=== PATIENT | male | born 1985 | race Hispanic/Latino ===

== ENCOUNTER 2019-06-06 21:12 | Emergency (ER) | payer BC, SELFPAY ==
[2019-06-06] MEDS ORDERED: LORazepam 2 MG/ML VIAL ONE (22:31)
[2019-06-06] MEDS ORDERED: HALOPERIDOL LACT 5 MG/ML INJ ONE (22:31)
[2019-06-06 23:23] LABS: Absolute Lymphocytes (CBC) 1.6 K/uL (0.7-4.9); Basophils % 0.2 % (0-1.3); Hematocrit 49.3 % (39.6-49.0); Lymphocytes % 11.2 % (15.3-44.8); MPV 10.3 fL (7.6-11.3); RBC Red Blood Cell Count 5.45 M/uL (4.33-5.43)
[2019-06-06 23:50] LABS: ALT/SGPT 41 U/L (12-78); AST/SGOT 26 U/L (15-37); Albumin 4.8 g/dL (3.4-5.0); Alkaline Phosphatase 86 U/L (45-117); BUN Blood Urea Nitrogen 11 mg/dL (7-18); Bicarbonate 23 mmol/L (21-32); Bilirubin Direct 0.2 mg/dL (0-0.2); Bilirubin Total 1.1 mg/dL (0.2-1.0); Glucose Level 151 mg/dL (74-106); Potassium 3.6 mmol/L (3.5-5.1); Sodium Level 138 mmol/L (136-145)
[2019-06-06 23:53] LABS: Urine Blood NEGATIVE (NEG); Urine Glucose NEGATIVE (NEG); Urine Protein 2+ (NEG); Urine Specific Gravity >1.030 (1.005-1.030)
[2019-06-07 00:14] LABS: Blood Morphology Comment NOT SEEN (NOT SEEN); Platelet Estimate ADEQ; Urine White Blood Cell Casts OK
[2019-06-07] MEDS ORDERED: NA CHLORIDE 0.9% 0 ML ONE (00:45)
[2019-06-07 02:39] LABS: Barbiturates NEGATIVE (NEGATIVE); Benzodiazepines NEGATIVE (NEGATIVE); Cocaine NEGATIVE (NEGATIVE); METHAMPHETAM NEGATIVE (NEGATIVE); Methadone NEGATIVE (NEGATIVE); Opiates NEGATIVE (NEGATIVE); Phencyclidine NEGATIVE (NEGATIVE); THC Cannibis POSITIVE (NEGATIVE)
--- NOTE | 2019-06-07 03:34 | ER ---
Nurse's Notes [facility] Name: Dmitriy Beach Age: 34 yrs Sex: Male : 1985 Arrival Date: 06/06/2019 Time: 21:17 Bed 16 Private MD: Diagnosis: Suicidal ideations;Altered mental status, unspecified;Bipolar disorder Presentation: 06/06 21:17 Presenting complaint: EMS states: they were toned out by [place] [employer] for report of pt bb walking in and out of gas station [facility] states pt not talking and not cooperative they were not able to get vital signs. Transition of care: patient was not received from another setting of care. Onset of symptoms is unknown. Risk Assessment: Do you want to hurt yourself or someone else? Unable to obtain. Initial Sepsis Screen:. Care prior to arrival: None. 21:17 Method Of Arrival: EMS: [facility] bb 21:17 Acuity: NIRMALA 2 bb 22:00 Initial Sepsis Screen: Does the patient meet any 2 criteria? No. Patient's initial wh sepsis screen is negative. Does the patient have a suspected source of infection? No. Patient's initial sepsis screen is negative. 06/07 07:12 Risk Assessment: Do you want to hurt yourself or someone else? Patient reports no jl7 desire to harm self or others. Triage Assessment: 06/06 22:06 General: Appears in no apparent distress. well groomed, Behavior is uncooperative. bb Pain: Unable to use pain scale. pt uncooperative. Neuro: Level of Consciousness is awake, alert, Oriented to unable to determine. Cardiovascular: No deficits noted. Respiratory: Respiratory effort is even, unlabored, Respiratory pattern is regular. GI: No deficits noted. Derm: Skin is pink, warm \T\ dry. Musculoskeletal: Circulation, motion, and sensation intact. Historical: - Allergies: 23:46 No Known Allergies; aa1 - Home Meds: 23:46 Risperdal Oral [Active]; aa1 - PMHx: 23:46 Depression; Bipolar disorder; aa1 - PSHx: 23:46 L elbow; aa1 - Immunization history:: Adult Immunizations unknown. - Social history:: Smoking status: unknown Smoking status: Patient uses tobacco products, smokes one pack cigarettes per day. Patient/guardian denies using street drugs, IV drugs. - Ebola Screening: : Unable to complete screening because uncooperative. Screenin:00 Fall Risk None identified. 22:08 Abuse screen: unable to determine. Nutritional screening: No deficits noted. mesfin Tuberculosis screening: unable to determine. Assessment: 21:20 Reassessment: [place] [employer] notified by [facility] tech that pt is uncooperative [place] [employer] bb refused to come to ED for assistance. 21:30 Reassessment: pt left ED with [place] [employer]. mefsin 21:38 Reassessment: pt returned with [place] [employer] who said he would not get in their car and when bb asked if he wants help pt replied yes according to [place] Lopez [place]. 21:55 Reassessment: [place] [employer] and [place] [employer] at bedside pt handcuffed received verbal order form mesfin Dawn TRACK AND FIELD COACH for Haldol 5 mg and Ativan 2 mg to be given IM pt medicated see JUL. 22:53 Reassessment: pt awake and alert, remains handcuffed with [place] [employer] and [place] [employer] at bedside.mesfin 23:05 Reassessment: Patient appears in no apparent distress at this time. Patient and/or aa1 family updated on plan of care and expected duration. Pain level reassessed. Pt much more alert and able to answer questions appropriately at this time. Pt able to provide staff with contact info as well as medical history. States he was driving home to his apartment in [place] and was not paying attention and ran out of gas so he walked to the gas station to get some gas and reports he left his phone in his car and was upset and thinks that is why someone called the police on him. Pt denies any thoughts of wanting to harm himself or anyone else. 23:47 Reassessment: Patient appears in no apparent distress at this time. Patient and/or aa1 family updated on plan of care and expected duration. Pain level reassessed. Patient is alert, oriented x 3, equal unlabored respirations, skin warm/dry/pink. Pt resting quietly; awaiting test results. 06/07 00:45 Reassessment: Patient appears in no apparent distress at this time. No changes from aa1 previously documented assessment. Patient and/or family updated on plan of care and expected duration. Pain level reassessed. Pt resting quietly; awaiting provider reassessment for d/c. 02:00 Reassessment: Patient appears in no apparent distress at this time. No changes from previously documented assessment. Patient and/or family updated on plan of care and expected duration. Pain level reassessed. Patient is alert, oriented x 3, equal unlabored respirations, skin warm/dry/pink. Pt sleeping well no signs of distress noted. 03:25 Reassessment: Patient appears in no apparent distress at this time. No changes from previously documented assessment. Patient and/or family updated on plan of care and expected duration. Pain level reassessed. Patient is alert, oriented x 3, equal unlabored respirations, skin warm/dry/pink. Pt sleeping well no signs of distress noted, family at bedside. 05:05 Reassessment: Patient appears in no apparent distress at this time. No changes from previously documented assessment. Patient and/or family updated on plan of care and expected duration. Pain level reassessed. Patient is alert, oriented x 3, equal unlabored respirations, skin warm/dry/pink. Pt sleeping well no signs of distress noted. 06:25 Reassessment: Patient appears in no apparent distress at this time. No changes from previously documented assessment. Patient and/or family updated on plan of care and expected duration. Pain level reassessed. Patient is alert, oriented x 3, equal unlabored respirations, skin warm/dry/pink. Pt sleeping well no signs of distress noted. 07:08 General: Appears in no apparent distress. uncomfortable, Behavior is calm, cooperative, jl7 appropriate for age. General: Pt's mom, Robyn, at bedside. Pt denies SI/HI at this time. Diet tray ordered, pt provided with warm blanket. Pain: Denies pain. Neuro: Level of Consciousness is awake, alert, obeys commands, Oriented to person, place, time, situation. Cardiovascular: Patient's skin is warm and dry. Respiratory: Airway is patent Respiratory effort is even, unlabored, Respiratory pattern is regular, symmetrical. GI: No signs and/or symptoms were reported involving the gastrointestinal system. : No signs and/or symptoms were reported regarding the genitourinary system. EENT: No signs and/or symptoms were reported regarding the EENT system. Derm: Skin is pink, warm \T\ dry. Musculoskeletal: No signs and/or symptoms reported regarding the musculoskeletal system. 08:17 Reassessment: Insurance information provided to registration. jl7 08:55 Reassessment: Dr. Pritchett at bedside. jl7 09:04 Reassessment: Nurse to Nurse with [facility] at [facility]. jl7 10:00 Reassessment: Patient appears in no apparent distress at this time. No changes from jl7 previously documented assessment. Patient and/or family updated on plan of care and expected duration. Pain level reassessed. Patient is alert, oriented x 3, equal unlabored respirations, skin warm/dry/pink. 10:30 Reassessment: [facility] at bedside to transport pt. jl7 Psych: 06/06 22:00 Subjective: Patient's mood is flat. Objective: Patient is uncooperative, Speech is wh normal, Affect is flat. Interventions: Removed personal items and placed in bag. Patient placed in hospital gown. Searched person for dangerous items. Urine collected and sent for urine drug test. Belonging list filled out. Suicide Risk Assessment: Sad Person Scale: Sex of patient: Male: Score 1 point. Age of patient: Score 1 point if patient 15-34. Depression: Score 0 point if signs of depression are not present. Previous Attempt: Score 0 point if patient has not previously attempted suicide. Substance Abuse: Score 1 point if patient abuses alcohol or drugs. Rational Thinking: Score 1 point if patient is lacking rational thinking. Social Support: Score 0 if social support is present/available. Safety Checks: Personal items have been removed. Door is open. No visitors are present at this time. Patient uses marijuana. Commitment: Patient will be a voluntary commitment. Vital Signs: 22:06 bb 22:20 BP 136 / 105; Pulse 114; Resp 18; Temp 98.0; Pulse Ox 96% on R/A; aa1 23:10 Weight 99.79 kg; Height 5 ft. 10 in. (177.80 cm); Pain 0/10; aa1 23:53 BP 112 / 66 RA Supine (auto/reg); Pulse 84 MON; Resp 18 S; Temp 98.2(A); Pulse Ox 95% ds4 on R/A; Pain 0/10; 06/07 06:27 BP 121 / 63; Pulse 95; Resp 18; Temp 98.3; Pulse Ox 98% ; Pain 0/10; ds4 06/06 23:10 Body Mass Index 31.57 (99.79 kg, 177.80 cm) aa1 06/06 22:06 unable to obtain pt is uncooperative bb ED Course: 21:17 Patient arrived in ED. ds1 21:18 Yordan Dawn, TRACK AND FIELD COACH is PHCP. pm1 21:18 Rosamaria Rizo MD is Attending Physician. pm1 21:20 Security at bedside. pt uncooperative. bb 21:20 No provider procedures requiring assistance completed. Patient did not have IV access bb during this emergency room visit. 22:00 Arm band placed on right wrist. wh 22:06 Triage completed. bb 22:06 Patient pt uncooperative will not allow bank to be placed on arm. bb 22:10 Initial lab(s) drawn, by me, sent to lab. bb 22:55 Urine collected: straight cath specimen, EKG done, by ED staff, reviewed by Yordan Dawn NP. 23:13 Ana Bonilla RN is Primary Nurse. bb 06/07 01:15 Report given to Britt Collazo RN. aa1 08:48 spoke with [facility], they have no beds at this time, they are waiting for bd discharges. refaxed chart to with updated information to [facility]. 09:02 Attending Physician role handed off by Rosamaria Rizo MD rn 09:02 Coleman Pritchett MD is Attending Physician. rn Administered Medications: 06/06 22:35 Drug: HALdol (as decanoate) 5 mg Route: IM; Site: right deltoid; bb 23:48 Follow up: Response: No adverse reaction; Marked relief of symptoms aa1 22:35 Drug: Ativan 2 mg Route: IM; Site: right deltoid; bb 23:48 Follow up: Response: No adverse reaction; Marked relief of symptoms aa1 06/07 00:46 CANCELLED (Physician Discretion; No IV present. Give fluids PO): NS 0.9% 1000 ml IV at pm1 1000 ml once Outcome: 03:34 ER care complete, transfer ordered by . ma2 10:33 Transferred by ground EMS Transfer form completed. Note: [facility] 10:33 Condition: stable 10:33 Discharge instructions given to patient, family, Instructed on the need for transfer, Demonstrated understanding of instructions. 10:34 Patient left the ED. jl7 Signatures: Richelle Ruth Alissa RN RN aa1 Chata Larson ds1 Ana Bonilla RN RN bb Coleman Pritchett MD MD rn Swanson, Donovan ds4 Yordan Dawn, TRACK AND FIELD COACH TRACK AND FIELD COACH pm1 Ricci Hughes RN RN jl7 Britt Collazo Mohammad, MD MD ma2 Corrections: (The following items were deleted from the chart) 06/06 22:11 22:06 Patient pt uncooperative will not allow bank to be placed on arm bb bb 22:12 22:08 Reassessment: [place] [employer] notified by [place] [employer] service technician that pt is uncooperative [place] PD refused to come to ED for assistance bb 23:46 22:06 Allergies: Unable to obtain; bb aa1 23:58 23:56 BP 112 / 66 Supine Auto R Arm Regular; Pulse 84bpm; MonitorResp 18bpm; ds4 Spontaneous; Pulse Ox 95% RA; Temp 98.2F Axillary; Pain 0/10; ds4
--- NOTE | 2019-06-07 03:35 | EDPHYS ---
Physician Documentation [facility] Name: Dmitriy Beach Age: 34 yrs Sex: Male : 1985 Arrival Date: 06/06/2019 Time: 21:17 Bed 16 Private MD: ED Physician Coleman Pritchett HPI: 06/06 22:32 This 34 yrs old Male presents to ER via EMS with complaints of Suicidal pm1 Ideation. 22:32 The patient presents to the emergency department with suicide ideation. Onset: The pm1 symptoms/episode began/occurred just prior to arrival. Patient is refusing to talk to me and nursing staff. According to the EMS, the patient was going in and out of a store repeatedly and the police were called. The police asked the patient if he wanted to hurt himself and he nodded his head. The police called for EMS transport and the EMS got the same response from the patient. They asked if he wanted the hurt himself and he nodded his head. Historical: - Allergies: 23:46 No Known Allergies; aa1 - Home Meds: 23:46 Risperdal Oral [Active]; aa1 - PMHx: 23:46 Depression; Bipolar disorder; aa1 - PSHx: 23:46 L elbow; aa1 - Immunization history:: Adult Immunizations unknown. - Social history:: Smoking status: unknown Smoking status: Patient uses tobacco products, smokes one pack cigarettes per day. Patient/guardian denies using street drugs, IV drugs. - Ebola Screening: : Unable to complete screening because uncooperative. ROS: 22:32 Unable to obtain ROS due to patient being uncooperative. pm1 Exam: 22:32 Constitutional: This is a well developed, well nourished patient who is awake, alert, pm1 and in no acute distress. Head/Face: Normocephalic, atraumatic. Neck: Trachea midline, no thyromegaly or masses palpated, and no cervical lymphadenopathy. Supple, full range of motion without nuchal rigidity, or vertebral point tenderness. No Meningismus. Chest/axilla: Normal chest wall appearance and motion. Nontender with no deformity. No lesions are appreciated. Cardiovascular: Regular rate and rhythm with a normal S1 and S2. No gallops, murmurs, or rubs. No pulse deficits. Respiratory: Lungs have equal breath sounds bilaterally, clear to auscultation and percussion. No rales, rhonchi or wheezes noted. No increased work of breathing, no retractions or nasal flaring. Abdomen/GI: Soft, non-tender, with normal bowel sounds. No distension or tympany. No guarding or rebound. No evidence of tenderness throughout. Back: No spinal tenderness. No costovertebral tenderness. Full range of motion. Skin: Warm, dry with normal turgor. Normal color with no rashes, no lesions, and no evidence of cellulitis. MS/ Extremity: Pulses equal, no cyanosis. Neurovascular intact. Full, normal range of motion. 22:32 Neuro: Motor: moves all fours. 22:32 Psych: Behavior/mood is uncooperative. 06/07 01:32 Constitutional: The patient appears in no acute distress, alert, awake. pm1 Psych: Behavior/mood is pleasant, cooperative, Affect is calm, Denies suicidal and homicidal ideation, Delusions/hallucinations are not present. Vital Signs: 06/06 22:06 bb 22:20 BP 136 / 105; Pulse 114; Resp 18; Temp 98.0; Pulse Ox 96% on R/A; aa1 23:10 Weight 99.79 kg; Height 5 ft. 10 in. (177.80 cm); Pain 0/10; aa1 23:53 BP 112 / 66 RA Supine (auto/reg); Pulse 84 MON; Resp 18 S; Temp 98.2(A); Pulse Ox 95% ds4 on R/A; Pain 0/10; 06/07 06:27 BP 121 / 63; Pulse 95; Resp 18; Temp 98.3; Pulse Ox 98% ; Pain 0/10; ds4 06/06 23:10 Body Mass Index 31.57 (99.79 kg, 177.80 cm) aa1 06/06 22:06 unable to obtain pt is uncooperative bb MDM: 21:18 Patient medically screened. pm1 06/07 01:32 Data reviewed: vital signs. Data interpreted: Pulse oximetry: on room air is 95 %. pm1 Interpretation: normal. 03:33 Differential diagnosis: acute psychotic break. ED course: + suicidal ideation, + MINH ma2 pfiled . 09:02 ED course: Pt much more calm today, family states when gets this bad usually needs rn inpatient care, was driving around for hours confused until ran out of gas, no hallucinations, not sleeping for days, told someone yesterday had thoughts of hurting himself, now denies. Voluntary.. 09:16 ED course: Accepted for transfer by Dr. Piña. . rn 06/06 21:19 Order name: Acetaminophen; Complete Time: 00:40 pm1 06/06 21:19 Order name: Basic Metabolic Panel; Complete Time: 00:40 pm1 06/06 21:19 Order name: CBC with Diff; Complete Time: 00:40 pm1 06/06 21:19 Order name: ETOH Level; Complete Time: 00:40 pm1 06/06 21:19 Order name: Hepatic Function; Complete Time: 00:40 pm1 06/06 21:19 Order name: Salicylate; Complete Time: 00:40 pm1 06/06 21:19 Order name: Urine Drug Screen; Complete Time: 02:59 pm1 06/06 23:00 Order name: Urine Dipstick--Ancillary (enter results); Complete Time: 00:40 mt 06/06 23:25 Order name: CBC Smear Scan; Complete Time: 00:40 EDMS 06/06 21:19 Order name: EKG; Complete Time: 21:19 pm1 06/06 21:19 Order name: EKG - Nurse/Tech; Complete Time: 22:57 pm1 06/06 21:19 Order name: Labs collected and sent; Complete Time: 22:48 pm1 06/06 21:19 Order name: Urine Dipstick-Ancillary (obtain specimen); Complete Time: 22:57 pm1 06/07 07:01 Order name: Diet Regular; Complete Time: 07:02 jl7 Administered Medications: 06/06 22:35 Drug: HALdol (as decanoate) 5 mg Route: IM; Site: right deltoid; bb 23:48 Follow up: Response: No adverse reaction; Marked relief of symptoms aa1 22:35 Drug: Ativan 2 mg Route: IM; Site: right deltoid; bb 23:48 Follow up: Response: No adverse reaction; Marked relief of symptoms aa06/07 00:46 CANCELLED (Physician Discretion; No IV present. Give fluids PO): NS 0.9% 1000 ml IV at pm1 1000 ml once Disposition: 03:33 Co-signature as Attending Physician, Rosamaria Rizo MD. ma2 Disposition: 06/07/19 03:34 Transfer ordered to Other Acute Care Facility. Diagnosis are Suicidal ideations, Altered mental status, unspecified, Bipolar disorder. - Reason for transfer: Higher level of care. - Accepting physician is Dr. Piña. - Condition is Stable. - Problem is new. - Symptoms are unchanged. Signatures: Dispatcher [employer] EDMS Asha Rainey RN RN aa1 Ana Bonilla RN RN bb Nieto, Roman, MD MD rn Marinas, Patrick, MILL HELPER MILL HELPER pm1 Ricci Hughes RN RN jl7 Rosamaria Rizo MD MD ma2 Corrections: (The following items were deleted from the chart) 06/06 23:23 21:19 PROTIME (+INR)+COAG.LAB.BRZ ordered. EDMS EDMS 23:23 21:19 PTT, ACTIVATED+COAG.LAB.BRZ ordered. EDMS EDMS 23:46 22:06 Allergies: Unable to obtain; mesfin aa1 06/07 00:46 00:41 NS 0.9% 1000 ml IV at 1000 ml once ordered. pm1 pm1 09:16 03:34 06/07/2019 03:34 Transfer ordered to Other Acute Care Facility. Diagnosis is rn Suicidal ideations. Reason for transfer: Higher level of care. Accepting physician is [facility]. Condition is Stable. Problem is new. Symptoms are unchanged. ma2 10:34 09:16 06/07/2019 03:34 Transfer ordered to Other Acute Care Facility. Diagnosis is jl7 Suicidal ideations; Altered mental status, unspecified; Bipolar disorder. Reason for transfer: Higher level of care. Accepting physician is Dr. Piña. Condition is Stable. Problem is new. Symptoms are unchanged. rn
--- NOTE | 2019-06-07 10:24 | EKG ---
Test Date: 2019-06-06 Test Time: 22:59:04 Cafeteria Table Attendant: JESUS MEASUREMENT RESULTS: Intervals: Rate: 102 FL: 152 QRSD: 76 QT: 340 QTc: 443 [place]: P: 54 FL: 152 QRS: 63 T: 37 INTERPRETIVE STATEMENTS: Sinus tachycardia Possible Left atrial enlargement Borderline ECG No previous ECG available for comparison Electronically Signed On 06-07-19 10:23:19 TUNE UP MECHANIC by Geovanny Hendricks
== END 2019-06-07 10:34 ==
LOC: ER 21:12
DX: R45.851 Suicidal ideations (principal); R41.82 Altered mental status, unspecified; F31.9 Bipolar disorder, unspecified
CPT/HCPCS: 93005; 85025; 80048; 36415; 80320; 80329 ×2; 80076; 80307 ×8; 81003; 96372; 99285; J1630; J7030